=== PATIENT | male | born 1985 | race Hispanic/Latino ===

== ENCOUNTER 2023-10-10 14:29 | Emergency (ER) | payer BC | END 2023-10-10 17:09 | disposition home or self-care (01) | LOC: CSHERS 14:29 | DX: R07.9 Chest pain, unspecified (principal); E11.9 Type 2 diabetes mellitus without complications; I10 Essential (primary) hypertension | CPT/HCPCS: 71046; 80053; 84484; 85025; 85379; 93005 ==